=== PATIENT | female | born 1935 | race Caucasian/White ===

== ENCOUNTER → 2017-08-11 | Outpatient (CLI) | payer MEDICARE ==
[~2017-08-11] MED LIST: BISOPROLOL PO; HYDROCHLOROTHIAZIDE PO; LISINOPRIL40 MG PO
== END | disposition home or self-care (01) ==
LOC: RAD 13:33
PROVIDERS: ATTEND Family Medicine
DX: R60.9 Edema, unspecified (principal); I73.9 Peripheral vascular disease, unspecified
CPT/HCPCS: 93925; 93970

== ENCOUNTER → 2017-08-27 | Outpatient (CLI) | payer MEDICARE ==
[~2017-08-27] MED LIST changes: +IOPAMIDOL 370 MG/ML 200 ML INFUS..BTL INJ ONE; +SODIUM CHLORIDE 0.9% 250ML 500 ML ONE; +SODIUM CHLORIDE 0.9% 50ML 50 ML ONE
[2017-08-27 11:16] LABS: CREATININE, SERUM 1.18 mg/dL (0.57-1.11)
--- NOTE | 2017-08-27 13:02 | Diagnostic Imaging Report ---
PROCEDURE: CTA ABD/PEL/BILATERAL LOWER EXT RUNOFF W \T\ W/O CONTRAST COMPARISON:Aortogram with runoff 01/02/2016. INDICATIONS:PERIPHERAL VASCULAR DISEASE TECHNIQUE: Multi-detector CT technology with Dose Reduction was employed. Images were obtained after the administration of 100 cc of Omnipaque 350 intravenously. For optimization of anatomic evaluation, multiplanar and volume rendering reconstructions were performed. Advanced 3-D off-line postprocessing were performed on a dedicated stand-alone workstation under the direct supervision of the interpreting physician. FINDINGS: Abdominal aorta and iliac vessels: Scattered atherosclerotic changes are present throughout the abdominal aorta and bilateral lower extremity runoff. Minimal amount of plaque is noted around the origins of the great vessels. The superior mesenteric, inferior mesenteric, and celiac arteries are patent. Bilateral renal arteries are patent. The common, internal, and external iliac arteries are patent bilaterally. Femoral-popliteal vessels: Multiple short segment stenoses, without significant narrowing, are present. The common, superficial, and profunda femoral arteries are patent. A stent is present in the distal right superficial femoral artery. The stent is patent. Infrapopliteal vessels: Multiple short segment stenoses, without segmental narrowing, are present in the popliteal and infrapopliteal vessels bilaterally. The above the knee and below the knee segments of the popliteal artery are patent. The bilateral posterior tibial arteries are nonopacified. The anterior tibial and peroneal arteries are patent. Patent two vessel runoff is present in the feet bilaterally. Abdominal and Pelvic soft-tissues and organs: Lung bases: No focal consolidation or parenchymal mass. No pleural effusion or pneumothorax. Liver: Normal parenchyma. No focal mass. Biliary: Cholelithiasis. No intrahepatic or extrahepatic biliary duct dilation. Spleen: No splenomegaly. No focal mass. Pancreas: Normal enhancement. No pancreatic duct dilation. No focal mass or peripancreatic soft tissue inflammatory changes. Adrenal Glands: No adrenal nodules. Kidneys: No obstructing calculi, hydronephrosis, or solid mass. Retroaortic left renal vein. Simple cyst in the inferior pole the left kidney. GI: The stomach, small bowel, and colon are unremarkable. No air-fluid levels. Normal appendix. A moderate amount of retained feces limits intraluminal evaluation of the colon. Peritoneum/Retroperitoneum: No pneumoperitoneum or free intraperitoneal fluid. No lymphadenopathy. No drainable fluid collection. Reproductive Organs: Normal uterus and ovaries. Musculoskeletal: No acute sclerotic or lucent lesion. Degenerative changes of the lumbar spine. CONCLUSION: 1. Non-opacification of the posterior tibial arteries bilaterally may represent chronic occlusion or contrast bolus deficiency. No acute abnormality. 2. No acute abnormality of the abdomen and pelvis. Dictated by: Daniel Valdez M.D. on 08/27/2017 at 13:03 Electronically approved by: Daniel Valdez M.D. on 08/27/2017 at 13:03
== END ==
LOC: CT 10:33
PROVIDERS: ATTEND Thoracic Surgery (Cardiothoracic Vascular Surgery)
DX: I73.9 Peripheral vascular disease, unspecified (principal); R60.9 Edema, unspecified
CPT/HCPCS: 36415; 75635; 82565; 84520; 93922; J7050; Q9967

== ENCOUNTER 2020-09-28 03:32 | Emergency (ER) | payer MEDICARE ==
[~2020-09-28] VITALS: Ht 160 cm; Wt 74.8 kg
[~2020-09-28 03:32] MED LIST changes: -IOPAMIDOL 370 MG/ML 200 ML INFUS..BTL INJ ONE; -SODIUM CHLORIDE 0.9% 250ML 500 ML ONE; -SODIUM CHLORIDE 0.9% 50ML 50 ML ONE
[2020-09-28] MEDS ORDERED: ONDANSETRON HCL INJ 2MG/ML 2ML 2 MG/ML VIAL IV STA (03:50)
[2020-09-28 03:58] LABS: BASOPHILS # (AUTO) 0.1 (0.0-0.1); BASOPHILS % 0.5 % (0.0-1.0); EOSINOPHILS # (AUTO) 0.1 (0.0-0.4); EOSINOPHILS % 0.6 % (0.0-6.0); HEMATOCRIT 42.8 % (34.2-44.1); HEMOGLOBIN 13.6 g/dL (12.0-16.0); LYMPHOCYTES # (AUTO) 1.7 (1.0-3.2); LYMPHOCYTES % 16.9 % (18.0-39.1); MEAN CORPUSCULAR HEMOGLOBIN 27.9 pg (28-32); MEAN CORPUSCULAR HGB CONC 31.8 g/dL (31-35); MEAN CORPUSCULAR VOLUME 87.9 fL (81-99); MONOCYTES # (AUTO) 0.7 (0.2-0.8); MONOCYTES % 6.5 % (4.4-11.3); NEUTROPHILS # (AUTO) 7.8 (2.1-6.9); NEUTROPHILS % 75.1 % (38.7-80.0); PLATELET COUNT 242 x10e3/uL (140-360); RED BLOOD COUNT 4.87 x10e6/uL (3.6-5.1); RED CELL DISTRIBUTION WIDTH 13.9 % (11.7-14.4)
[2020-09-28] MEDS ORDERED: ONDANSETRON HCL INJ 2MG/ML 2ML 2 MG/ML VIAL ONE (03:58)
[2020-09-28 04:17] LABS: ALBUMIN 4.2 g/dL (3.5-5.0); ALBUMIN/GLOBULIN RATIO 1.1 (0.8-2.0); CALCIUM 10.3 mg/dL (8.4-10.2); CREATININE, SERUM 1.43 mg/dL (0.57-1.11)
[2020-09-28 04:24] LABS: CREATINE KINASE MB 2.4 ng/mL (0-5.0)
[2020-09-28] MEDS ORDERED: SODIUM CHLORIDE 0.9% 1000ML 1,000 ML IV ONE (05:00)
[2020-09-28] MEDS ORDERED: SODIUM CHLORIDE 0.9% 1000ML 1,000 ML ONE (05:04)
[2020-09-28] MEDS ORDERED: IOPAMIDOL 370 MG/ML 200 ML INFUS..BTL INJ ONE (06:46)
[2020-09-28] MEDS ORDERED: SODIUM CHLORIDE 0.9% 50ML 50 ML ONE (06:47)
[2020-09-28 07:11] LABS: CLARITY,URINE CLEAR (CLEAR); COLOR,URINE YELLOW (YELLOW); KETONES,URINE NEGATIVE (NEGATIVE); LEUKOCYTE ESTERASE ,URINE SMALL (NEGATIVE); NITRITE,URINE NEGATIVE (NEGATIVE); PROTEIN,URINE DIPSTICK NEGATIVE (NEGATIVE); URINE UROBILINOGEN 0.2 mg/dL (0.2 - 1)
[2020-09-28 07:34] LABS: BACTERIA,URINE MANY /HPF; EPITHELIAL CELLS,URINE FEW /LPF; TRANSITIONAL EPI CELLS,URINE FEW
[2020-09-28] MEDS ORDERED: ONDANSETRON ODT4 MG PO ×2 (07:46→08:03)
[2020-09-28] MEDS ORDERED: CEPHALEXIN500 MG PO ×2 (07:46→08:03)
== END 2020-09-28 07:55 | disposition home or self-care (01) ==
LOC: ER 05:01
DX: R11.2 Nausea with vomiting, unspecified (principal); N39.0 Urinary tract infection, site not specified; K55.1 Chronic vascular disorders of intestine; R19.7 Diarrhea, unspecified
CPT/HCPCS: 36415; 70450; 74177; 80053; 81001; 82550; 82553; 84484; 85025; 93005; 99285; J2405; J7030; Q9967